=== PATIENT | male | born 1935 | race Hispanic/Latino ===

== ENCOUNTER 2017-01-23 11:06 | Day surgery (SDC) | payer MEDICARE ==
[2017-01-23 11:48] VITALS: BP 116/64
[2017-01-23] MEDS ORDERED: IOPIDINE OD ONE ×2 (11:49)
[2017-01-23] MEDS ORDERED: AK-Dilate OD ONE (11:50)
[2017-01-23] MEDS ORDERED: MYDRIACYL OD ONE ×2 (11:50)
== END 2017-01-23 12:33 | disposition home or self-care (01) ==
LOC: OR 11:06
PROVIDERS: ATTEND Ophthalmology
DX: H26.491 Other secondary cataract, right eye (principal); I10 Essential (primary) hypertension; E78.00 Pure hypercholesterolemia, unspecified; J44.9 Chronic obstructive pulmonary disease, unspecified; K21.9 Gastro-esophageal reflux disease without esophagitis; M13.849 Other specified arthritis, unspecified hand

== ENCOUNTER 2017-01-30 11:25 | Day surgery (SDC) | payer MEDICARE ==
[~2017-01-30 11:25] MED LIST: AK-Dilate OS ONE; IOPIDINE OS ONE; MYDRIACYL OS ONE
[2017-01-30] MEDS ORDERED: AK-Dilate OS ONE (12:00)
[2017-01-30] MEDS ORDERED: MYDRIACYL OS ONE (12:00)
[2017-01-30] MEDS ORDERED: IOPIDINE OS ONE ×2 (12:00→12:37)
[2017-01-30 12:17] VITALS: BP 120/66
== END 2017-01-30 12:40 | disposition home or self-care (01) ==
LOC: OR 11:25
PROVIDERS: ATTEND Ophthalmology
DX: H26.492 Other secondary cataract, left eye (principal)